=== PATIENT | male | born 1995 | race Caucasian/White ===

== ENCOUNTER 2017-04-13 07:35 | Day surgery (SDC) | payer OTHER ==
[2017-04-09 09:34] LABS: ABSOLUTE EOSINOPHILS # (AUTO) 0.2 10^3/uL (0.0-0.6); ABSOLUTE LYMPHOCYTES (AUTO) 1.8 10^3/uL (0.5-4.7); ABSOLUTE MONOCYTES (AUTO) 0.5 10^3/uL (0.1-1.4); BASOPHILS % (AUTO) 0.9 % (0-2); EOSINOPHILS % (AUTO) 3.8 % (0-6); HEMATOCRIT 42.8 % (37.9-51.0); HEMOGLOBIN 14.4 g/dL (13.5-17.0); HGB HCT DIFFERENCE 0.4; LYMPHOCYTES % (AUTO) 32.8 % (13-45); MEAN CORPUSCULAR HEMOGLOBIN 31.5 pg (27.0-33.4); MEAN CORPUSCULAR HGB CONC 33.7 g/dL (32.0-36.0); MEAN CORPUSCULAR VOLUME 94 fl (80-97); MONOCYTES % (AUTO) 8.4 % (3-13); RED BLOOD COUNT 4.58 10^6/uL (4.35-5.55); RED CELL DISTRIBUTION WIDTH 13.7 % (11.5-14.0); SEGMENTED NEUTROPHILS % (AUTO) 54.1 % (42-78); WHITE BLOOD COUNT 5.6 10^3/uL (4.0-10.5)
[2017-04-09 09:44] LABS: APPEARANCE,URINE CLEAR; BILIRUBIN,URINE NEGATIVE (NEGATIVE); GLUCOSE, URINE NEGATIVE (NEGATIVE); KETONES,URINE NEGATIVE (NEGATIVE); LEUKOCYTE ESTERASE,URINE NEGATIVE (NEGATIVE); NITRITE,URINE NEGATIVE (NEGATIVE); PROTEIN,URINE NEGATIVE (NEGATIVE); URINE SPECIFIC GRAVITY 1.026; UROBILINOGEN,URINE NEGATIVE mg/dL (<2.0)
[2017-04-09 10:08] LABS: ANION GAP 9 (5-19); BLOOD UREA NITROGEN 15 mg/dL (7-20); CALCIUM 9.4 mg/dL (8.4-10.2); CARBON DIOXIDE 28 mmol/L (22-30); CHLORIDE 105 mmol/L (98-107); CREATININE RESULT 1.06 mg/dL (0.52-1.25); GLUCOSE 88 mg/dL (75-110); POTASSIUM 4.4 mmol/L (3.6-5.0); SODIUM 141.7 mmol/L (137-145)
[~2017-04-13 07:35] MED LIST: CEFAZOLIN 2 GM/D5W RTU 2 GM/50 ML RTUPB IV PRN; LACTATED RINGERS 1000 ML IV PRN; LIDOCAINE 0.5% INJ-PF (5 MG/ML) 50 ML SDV SUBCUT PRN
[2017-04-13] MEDS ORDERED: BUPIVACAINE HCL 0.5 % INJ/PF 30 ML SDV ONE (07:54)
[2017-04-13] MEDS ORDERED: EPHEDRINE SULFATE INJ 50 MG/1 ML AMPULE ONE (09:43)
[2017-04-13] MEDS ORDERED: FENTANYL CITRATE INJ/PF 250 MCG/5 ML AMPULE ONE (09:43)
[2017-04-13] MEDS ORDERED: PROPOFOL INJ 200 MG/20 ML VIAL IV ONE (09:43)
[2017-04-13] MEDS ORDERED: MIDAZOLAM 2 MG/2 ML INJ ONE (09:43)
[2017-04-13] MEDS ORDERED: ACETAMINOPHEN 100 ML IV ONE (09:44)
[2017-04-13] MEDS ORDERED: PROMETHAZINE HCL INJ 25 MG/1 ML VIAL IV PRN ×2 (11:14)
[2017-04-13] MEDS ORDERED: DIPHENHYDRAMINE HCL 50 MG/ML VIAL IV PRN (11:14)
[2017-04-13] MEDS ORDERED: FENTANYL CITRATE INJ/PF 100 MCG/2 ML AMPUL IV PRN ×3 (11:14)
[2017-04-13] MEDS ORDERED: MEPERIDINE HCL/PF INJ 25 MG/1 ML DISP.SYRIN IV PRN (11:14)
[2017-04-13] MEDS ORDERED: ONDANSETRON HCL INJ/PF 4 MG/2 ML SDV IV PRN ×2 (11:14→13:02)
[2017-04-13] MEDS ORDERED: MORPHINE SULFATE 10 MG/ML INJ IV PRN (11:14)
--- NOTE | 2017-04-13 13:01 | Operative Report ---
Operative Report DATE OF SURGERY: 04/13/17 PREOPERATIVE DIAGNOSIS: Right SNAC Wrist Stage II/III POSTOPERATIVE DIAGNOSIS: Right SNAC Wrist Stage II OPERATION: 1. Right wrist capitolunate arthrodesis with scaphoid/triquetral excision. 2. posterior interosseous neurectomy. 3. 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 Discussed treatment options with the patient including salvage procedure which would include arthroscopy with neurectomies however given the degenerative changes I do not feel this will likely provide long-term relief thus the joint decision was made to proceed with scaphoid excision midcarpal arthrodesis. Procedure In Detail: Patient was seen and evaluated in the preoperative holding area. The RIGHT upper extremity was initialized and marked. Patient received 2g of Ancef IV for bacterial prophylaxis. Patient was taken back to the operative room where transferred to the operative table and placed under general anesthesia. Once they were adequately anesthetized a nonsterile tourniquet was placed on the upper extremity. A surgical team debriefing was performed ensuring all instrumentation was available, the surgical procedure was discussed with possible concerns reviewed. The upper extremity was prepped with chlorhexidine and alcohol and draped in a sterile fashion. A timeout was done identifying correct patient, procedure and extremity everyone in attendance agree with this and verbalized no concerns. The extremity was exsanguinated the tourniquet was inflated to 250 mmHg. General skin incision was made just ulnar to Frandy's tubercle. Blunt dissection was performed branches of superficial radial nerve were identified and retracted. I then opened the third dorsal compartment and the EPL tendon was translocated in a radial direction. The fourth dorsal compartment was then elevated identifying the dorsal radial carpal and dorsal intercarpal ligaments. Within the fourth dorsal compartment the posterior interosseous nerve was identified and 1 cm was excised. A capsulotomy was made leaving sufficient tissue for later repair. I identified the nonunion site there was sclerosis of the edges along with degenerative changes at the radial styloid and radial scaphoid articulation. Early degenerative changes of the scaphocapitate. I then proceeded with excision of the scaphoid. The scaphoid was removed in its entirety cartilage was resected on the back table allowing for autograft for midcarpal fusion. I then proceeded with excision of the triquetrum to allow optimal possible postoperative range of motion. I then proceeded with radial styloidectomy removing less than 4 mm of the radial styloid distal to the insertion of the radius scaphoid capitate ligament which I was able to visualize directly. C-arm fluoroscopy was obtained confirming complete excision of the scaphoid and triquetrum. Identified the capitolunate and radiolunate articulations there was good cartilage along the radial lunate articulation without evidence of degenerative changes. I then prepared the bone at the capitolunate interval down to good cancellus bone to allow for optimal bone healing for arthrodesis. With a 0.0262 K wire I reduce the capitolunate joint to neutral position correcting patient dorsally rotated lunate. This position was then secured with a 0.062 K wire. I then proceeded with fixation of my fusion with BME norma. Under C- arm fluoroscopy I confirmed positions along the capitate and lunate these were then drilled a 15 x 10 and a 13 x 10 norma were utilized to obtain fixation unfortunately this resulted in comminution along the dorsal aspect of the lunate and adequate fixation for fusion. At that point I turned to an alternative method of fixation with Acutrak screws. Maintaining the position of my capitolunate I placed the K wire for a mini Acutrak screw C-arm fluoroscopy was obtained measuring the appropriate size screw. A 26 mm mini Acutrak screw was placed into position obtaining optimal capitolunate compression of the cancellus bone surfaces. Given the small lunate I then placed a second Acutrak screw but used a mini Acutrak screw. Once again the K wire was placed and confirmed position with C arm fluoroscopy and I placed a 20 mm mini Acutrak screw obtaining good fixation. Range of motion was then measured the patient demonstrated near full passive flexion with extension greater than 55. There is no evidence of bony impingement dorsally. The wound was then copiously irrigated with normal saline. I then packed the remaining scaphoid and triquetral cancellus bone with any remaining defects between the capitate and lunate. Final C arm fluoroscopy radiographs were obtained demonstrating acceptable alignment on lateral view of my capitolunate fusion site no evidence of ulnar translocation. The dorsal capsule was loosely closed with interrupted 3-0 Ethibond suture. I then secured the remaining fourth dorsal compartment with the third dorsal compartment retinaculum with interrupted 3-0 Vicryl suture. The EPL remained transposed. The tourniquet was then deflated. Any peripheral vasculature was coagulated with bipolar cautery. Subcutaneous tissues closed with interrupted 3 -0 Monocryl suture. Skin was closed with running subcuticular 3-0 Monocryl reinforced with Dermabond and Steri-Strips. 20 cc of 0.5% Marcaine without epinephrine was injected for postoperative pain control. Placed in a dorsal plaster splint. Sponge counts, instrument counts, needle counts counts were correct. Patient was then awoken from anesthesia. Transferred from the operating room table to the operating room stretcher. There was no intraoperative complications patient tolerated procedure well stable to PACU. Postoperative plan: Patient will follow in the office in 10-14 days. We will obtain x-rays on follow-up visit. He will be placed in a short arm cast at that time.
[2017-04-13] MEDS ORDERED: HYDROMORPHONE HCL INJ/PF 2 MG/ML AMPULE IV PRN (13:02)
[2017-04-13] MEDS ORDERED: OXYCODONE-ACETAMINOPHEN 5-325 MG TABLET PO PRN (13:02)
[2017-04-13 14:33] VITALS: BP 123/80
[2017-04-13] MEDS ORDERED: LIDOCAINE 2% INJ-PF (20 MG/ML) 10 ML AMPUL ONE (14:40)
[2017-04-13] MEDS ORDERED: GLYCOPYRROLATE INJ 0.4 MG/2 ML VIAL ONE (14:40)
[2017-04-13] MEDS ORDERED: SUCCINYLCHOLINE CHLORIDE INJ 200 MG/10 ML VIAL ONE (14:40)
[2017-04-13] MEDS ORDERED: METOCLOPRAMIDE HCL INJ/PF 10 MG/2 ML SDV ONE (14:40)
[2017-04-13] MEDS ORDERED: ONDANSETRON HCL INJ/PF 4 MG/2 ML SDV ONE (14:40)
[2017-04-13] MEDS ORDERED: DEXAMETHASONE SOD PHOSPHATE INJ 4 MG/1 ML VIAL ONE (14:40)
[2017-04-13] MEDS ORDERED: KETOROLAC TROMETHAMINE 60 MG/2 ML SDV ONE (14:40)
--- NOTE | 2017-04-13 15:27 | RADIOLOGY REPORT (SQ) ---
EXAM DESCRIPTION: WRIST RIGHT 2 VIEWS; NO CHG FLUORO COMPLETED DATE/TIME: 04/13/2017 3:17 pm REASON FOR STUDY: ORIF RT SCAPHOID S62.001K UNSP FX NAVICULAR BONE OF R WRIST, SUBS FOR FX W NO COMPARISON: None. FLUOROSCOPY TIME: 1 minutes 45 seconds 10 digital images saved to PACS. TECHNIQUE: Intra-operative images acquired during surgical procedure to evaluate progress. NUMBER OF IMAGES: Cine fluoroscopic images. LIMITATIONS: None. FINDINGS: Intra procedural imaging and fluoro during surgery of the right carpal bones. Please see the operative report for further detail IMPRESSION: Intra procedural imaging and fluoro COMMENT: Quality ID [id number]: Final reports for procedures using fluoroscopy that document radiation exp osure indices, or exposure time and number of fluorographic images (if radiation exposure indices are not available) Please consult full operative report of the attending physician for description of the procedure. TECHNICAL DOCUMENTATION: JOB ID: [id number] [employer]- All Rights Reserved
--- NOTE | 2017-04-14 12:16 | PDOC DISCHARGE SUMMARY ---
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 Fransisco Esquivel @ [facility] for Surgery to be seen in 10-14 days or as scheduled [place]: [place]: [place]: Keep splint clean/dry/intact. Ice and elevate May begin finger range of motion attempting to make full fist. Stool softener of choice when on pain medication. Prescriptions: Ibuprofen 800 mg PO Q8 PRN #40 tablet PRN Reason: Oxycodone HCl/Acetaminophen [Percocet 5-325 mg Tablet] 1 - 2 tab PO ASDIR PRN # 45 tablet PRN Reason: Discharge Diet: As Tolerated Respiratory Treatments at Home: Deep Breathing/Coughing Discharge Activity: No Lifting Over 10 Pounds, No Lifting/Push/Pulling Report the Following to Your Physician Immediately: Fever over 101 Degrees, Unusual Bleeding, Redness, Swelling, Warmth, Increased Soreness
== END 2017-04-13 14:35 | disposition home or self-care (01) ==
LOC: OROUT 07:35
PROVIDERS: ATTEND Orthopaedic Surgery
PROC: 0PBH0ZZ Excision of Right Radius, Open Approach (ICD-10-PCS; 2017-04-13)
PROC: 0RGN04Z Fusion of Right Wrist Joint with Internal Fixation Device, Open Approach (ICD-10-PCS; 2017-04-13)
PROC: 01B60ZZ Excision of Radial Nerve, Open Approach (ICD-10-PCS; principal; 2017-04-13 09:45)
DX: S62.001K Unspecified fracture of navicular [scaphoid] bone of right wrist, subsequent encounter for fracture with nonunion (principal); X58.XXXD Exposure to other specified factors, subsequent encounter; M87.9 Osteonecrosis, unspecified; M25.531 Pain in right wrist
CPT/HCPCS: 36415; 85025; 80048; 81001; 73100; 64772; 25230; 25830; C1769 ×3; J2250; J1100; J1885; J3010; J2765; J0330; J2405; J2704; J3490; J0690; J0131; 01830

== ENCOUNTER 2017-05-18 16:11 | Day surgery (SDC) | payer OTHER ==
[2017-05-17 12:14] LABS: ABSOLUTE BASOPHILS # (AUTO) 0.1 10^3/uL (0.0-0.2); ABSOLUTE EOSINOPHILS # (AUTO) 0.2 10^3/uL (0.0-0.6); ABSOLUTE LYMPHOCYTES (AUTO) 2.1 10^3/uL (0.5-4.7); ABSOLUTE MONOCYTES (AUTO) 0.6 10^3/uL (0.1-1.4); ABSOLUTE NEUT (AUTO) 4.2 10^3/uL (1.7-8.2); BASOPHILS % (AUTO) 0.9 % (0-2); EOSINOPHILS % (AUTO) 2.4 % (0-6); HEMATOCRIT 42.5 % (37.9-51.0); HEMOGLOBIN 14.8 g/dL (13.5-17.0); HGB HCT DIFFERENCE 1.9; LYMPHOCYTES % (AUTO) 29.7 % (13-45); MEAN CORPUSCULAR HEMOGLOBIN 32.1 pg (27.0-33.4); MEAN CORPUSCULAR HGB CONC 34.9 g/dL (32.0-36.0); MEAN CORPUSCULAR VOLUME 92 fl (80-97); MONOCYTES % (AUTO) 8.2 % (3-13); RED BLOOD COUNT 4.61 10^6/uL (4.35-5.55); RED CELL DISTRIBUTION WIDTH 13.4 % (11.5-14.0); SEGMENTED NEUTROPHILS % (AUTO) 58.8 % (42-78); WHITE BLOOD COUNT 7.2 10^3/uL (4.0-10.5)
[2017-05-17 12:29] LABS: APPEARANCE,URINE CLEAR; BILIRUBIN,URINE NEGATIVE (NEGATIVE); GLUCOSE, URINE NEGATIVE (NEGATIVE); KETONES,URINE NEGATIVE (NEGATIVE); LEUKOCYTE ESTERASE,URINE NEGATIVE (NEGATIVE); NITRITE,URINE NEGATIVE (NEGATIVE); PROTEIN,URINE NEGATIVE (NEGATIVE); URINE SPECIFIC GRAVITY 1.017; UROBILINOGEN,URINE NEGATIVE mg/dL (<2.0)
[2017-05-17 12:37] LABS: ANION GAP 11 (5-19); BLOOD UREA NITROGEN 20 mg/dL (7-20); CALCIUM 9.9 mg/dL (8.4-10.2); CARBON DIOXIDE 29 mmol/L (22-30); CHLORIDE 102 mmol/L (98-107); CREATININE RESULT 0.93 mg/dL (0.52-1.25); GLUCOSE 80 mg/dL (75-110); POTASSIUM 4.7 mmol/L (3.6-5.0); SODIUM 141.9 mmol/L (137-145)
[~2017-05-18 16:11] MED LIST changes: +BUPIVACAINE HCL 0.5 % INJ/PF 30 ML SDV ONE; -CEFAZOLIN 2 GM/D5W RTU 2 GM/50 ML RTUPB IV PRN; +CEFAZOLIN SODIUM 2 GM in DEXTROSE 5%-WATER 100 ML IV PRN; +LIDOCAINE 1% INJ-PF (10 MG/ML) 30 ML SDV ONE
[2017-05-18] MEDS ORDERED: FENTANYL CITRATE INJ/PF 100 MCG/2 ML AMPUL ONE (16:18)
[2017-05-18] MEDS ORDERED: ONDANSETRON HCL INJ/PF 4 MG/2 ML SDV ONE (16:19)
[2017-05-18] MEDS ORDERED: MIDAZOLAM 2 MG/2 ML INJ ONE (16:19)
[2017-05-18] MEDS ORDERED: PROPOFOL INJ 200 MG/20 ML VIAL IV ONE (16:19)
[2017-05-18] MEDS ORDERED: DEXAMETHASONE SOD PHOSPHATE INJ 4 MG/1 ML VIAL ONE (16:19)
[2017-05-18] MEDS ORDERED: MEPERIDINE HCL/PF INJ 25 MG/1 ML DISP.SYRIN IV PRN (17:14)
[2017-05-18] MEDS ORDERED: MORPHINE SULFATE 10 MG/ML INJ IV PRN (17:14)
[2017-05-18] MEDS ORDERED: FENTANYL CITRATE INJ/PF 100 MCG/2 ML AMPUL IV PRN ×3 (17:14)
[2017-05-18] MEDS ORDERED: OXYCODONE-ACETAMINOPHEN 5-325 MG TABLET PO PRN ×3 (17:14→18:08)
[2017-05-18] MEDS ORDERED: DIPHENHYDRAMINE HCL 50 MG/ML VIAL IV PRN (17:14)
[2017-05-18] MEDS ORDERED: PROMETHAZINE HCL INJ 25 MG/1 ML VIAL IV PRN ×2 (17:14)
[2017-05-18] MEDS ORDERED: ONDANSETRON HCL INJ/PF 4 MG/2 ML SDV IV PRN (18:08)
[2017-05-18] MEDS ORDERED: HYDROMORPHONE HCL INJ/PF 2 MG/ML AMPULE IV PRN (18:08)
--- NOTE | 2017-05-18 18:10 | PDOC DISCHARGE SUMMARY ---
Discharge Summary (SDC) - Discharge Final Diagnosis: S/P Mid-Carpal Fusion Date of Surgery: 05/18/17 Discharge Date: 05/18/17 Condition: Good Treatment or Instructions: Schedule Follow Up w/ Dr. Fransisco Esquivel @ [facility] for Surgery to be seen in 10-14 days or as scheduled [place]: [place]: [place]: Keep cast clean/dry/intact. Ice and elevate May begin finger range of motion attempting to make full fist. Stool softener of choice when on pain medication. Prescriptions: Oxycodone HCl/Acetaminophen [Percocet 5-325 mg Tablet] 1 - 2 tab PO ASDIR PRN # 45 tablet PRN Reason: Discharge Diet: As Tolerated Respiratory Treatments at Home: Deep Breathing/Coughing Discharge Activity: No Lifting Over 10 Pounds, No Lifting/Push/Pulling Report the Following to Your Physician Immediately: Fever over 101 Degrees, Unusual Bleeding, Redness, Swelling, Warmth, Increased Soreness
--- NOTE | 2017-05-18 18:26 | Operative Report ---
Operative Report DATE OF SURGERY: 05/18/17 PREOPERATIVE DIAGNOSIS: Painful Hardware S/P MidCarpal Fusion POSTOPERATIVE DIAGNOSIS: Same OPERATION: Removal Hardware Right Wrist. Percutaneous Pinning Radiocarpal Joint SURGEON: RICARDO FLORES ANESTHESIA: GA COMPLICATIONS: None ESTIMATED BLOOD LOSS: Minimal PROCEDURE: Indication for Above Procedure: 21-year-old male who sustained a scaphoid nonunion subsequently we proceeded with midcarpal fusion. Approximately 3 weeks postoperatively patient was swimming when he dove into the pool subsequent and got his cast wet. A follow- up visit x-rays were obtained demonstrating hardware migration. At that point we discussed treatment options and recommended proceeding with operative intervention which includes removal of extruded hardware. Risks and benefits were explained the patient patient verbalized understanding consented for the procedure. Procedure in detail: Procedure In Detail: Patient was seen and evaluated in the preoperative holding area. The RIGHT upper extremity was initialized and marked. Patient received 2g of Ancef IV for bacterial prophylaxis. Patient was taken back to the operative room where transferred to the operative table and placed under general anesthesia. Once they were adequately anesthetized a nonsterile tourniquet was placed on the upper extremity. A surgical team debriefing was performed ensuring all instrumentation was available, the surgical procedure was discussed with possible concerns reviewed. The upper extremity was prepped with chlorhexidine and alcohol and draped in a sterile fashion. A timeout was done identifying correct patient, procedure and extremity everyone in attendance agree with this and verbalized no concerns. The extremity was exsanguinated the tourniquet was inflated to 250 mmHg. Previous skin incision was utilized. Blunt dissection was performed the superficial radial nerve was identified and retracted with the skin flap. The interval between the third and fourth dorsal compartments was utilized fourth dorsal compartment was elevated. A transverse capsulotomy was made identifying the radiocarpal joint. Migration of the most ulnar screw was identified. There was an area of chondral damage with a screw extruded. Screw was successfully removed. There was collapse of the lunate into the capitate causing risk of extrusion of the most radial screw. He did demonstrate good osseous union along the most volar aspect of the lunate thus the mini Acutrak screw radially was also removed. There was fragmentation of the lunate with a dorsal fragment approximately 10 mm x 10 mm this was excised to avoid loose body within the joint. Once this was removed there was smooth articulation of the radiolunate joint. No evidence of crepitation. There is no degenerative changes of the radius appreciated. Early further provide fixation I then utilized a 0.045 K wire transarticular along the radiocarpal joint to provide some immobilization. Wound was then copiously irrigated with normal saline. Tourniquet was deflated. A peripheral vasculature was coagulated bipolar cautery into the wound was dry. A transverse capsulotomy was closed with interrupted 3-0 Vicryl suture. Subcutaneous tissues were closed with interrupted 4-0 Monocryl. Skin was closed with running subcuticular 4-0 Monocryl reinforced with Dermabond and Steri-Strips. 10 cc of 0.5% Marcaine without epinephrine was injected for postoperative pain control. Patient was placed in a well-padded loosely fitting short arm cast for immobilization. Sponge count Sponge counts, instrument counts, needle counts counts were correct. Patient was then awoken from anesthesia. Transferred from the operating room table to the operating room stretcher. There was no intraoperative complications patient tolerated procedure well stable to PACU. Postoperative plan: Plan will be continue the K wire for 6 weeks at that point we will proceed with K wire removal. Patient will require casting up to 10 weeks or until union.
[2017-05-18] MEDS ORDERED: HYDROMORPHONE HCL INJ/PF 2 MG/ML AMPULE ONE (19:18)
[2017-05-18 20:20] VITALS: BP 137/84
--- NOTE | 2017-05-18 20:38 | RADIOLOGY REPORT (SQ) ---
EXAM DESCRIPTION: NO CHG FLUORO COMPLETE DATE/TIME: 05/18/2017 8:30 pm REASON FOR STUDY: HARDWARE REMOVAL RT WRIST T84.398A [facility] COMPL OF OTH BONE DEVICES, IMPLANTS AND G RAFTS FINDINGS: Please see combined report for performance of procedure and radiologic supervision and int erpretation. IMPRESSION: Please see combined report for performance of procedure and radiologic supervision and i nterpretation.
--- NOTE | 2017-05-18 20:39 | RADIOLOGY REPORT (SQ) ---
EXAM DESCRIPTION: WRIST RIGHT 2 VIEWS COMPLETED DATE/TIME: 05/18/2017 8:30 pm REASON FOR STUDY: HARDWARE REMOVAL RT WRIST T84.398A [facility] COMPL OF OTH BONE DEVICES, IMPLANTS AND G RAFTS COMPARISON: None. FLUOROSCOPY TIME: 50 seconds 8 images saved to PACS. TECHNIQUE: Intra-operative images acquired during surgical procedure to evaluate progress. NUMBER OF IMAGES: 8 image LIMITATIONS: None. FINDINGS: Fluoroscopic images were obtained during placement of orthopedic hardware at the level of the carpal bones. IMPRESSION: IMAGE(S) OBTAINED DURING PROCEDURE. COMMENT: Quality ID [id number]: Final reports for procedures using fluoroscopy that document radiation exp osure indices, or exposure time and number of fluorographic images (if radiation exposure indices are not available) Please consult full operative report of the attending physician for description of the procedure. TECHNICAL DOCUMENTATION: JOB ID: [id number] [employer]- All Rights Reserved
== END 2017-05-18 20:20 | disposition home or self-care (01) ==
LOC: OROUT 16:11
PROVIDERS: ATTEND Orthopaedic Surgery
PROC: 0RG Upper Joints, Fusion (ICD-10-PCS; 2017-05-18)
PROC: 0RPN04Z Removal of Internal Fixation Device from Right Wrist Joint, Open Approach (ICD-10-PCS; principal; 2017-05-18 17:00)
DX: T84.398A Other mechanical complication of other bone devices, implants and grafts, initial encounter (principal); S62.001K Unspecified fracture of navicular [scaphoid] bone of right wrist, subsequent encounter for fracture with nonunion; X58.XXXD Exposure to other specified factors, subsequent encounter; M79.641 Pain in right hand
CPT/HCPCS: 36415; 85025; 80048; 81001; 73100; 20680; 25820; C1769; J2250; J0690; J1100; J3010; J1170; J2405; J2704; 01830; J3490

== ENCOUNTER 2018-04-05 16:42 | Emergency (ER) | payer OTHER ==
[2018-04-05 16:49] VITALS: BP 131/63
--- NOTE | 2018-04-05 17:29 | ER Document Report ---
HPI - HPI Patient complains to provider of: cough, congestion Onset: Other - 2 days Pain Level: 3 Context: 22 yo male with cough, congestion for several days. Chest sore from coughing. No sob. No hx ashtma, some fever. Associated Symptoms: None Exacerbated by: Other - see above Relieved by: Denies Similar symptoms previously: Yes Recently seen / treated by doctor: No - ROS ROS below otherwise negative: Yes Systems Reviewed and Negative: Yes All other systems reviewed and negative - CONSTITUTIONAL Constitutional: REPORTS: Fever, Chills - EENT EENT: DENIES: Sore Throat, Ear Pain, Eye problems - NEURO Neurology: DENIES: Headache, Weakness, Vision blurred, Dizzinesss / Vertigo - CARDIOVASCULAR Cardiovascular: REPORTS: Chest pain - RESPIRATORY Respiratory: REPORTS: Trouble Breathing, Coughing - GASTROINTESTINAL Gastrointestinal: DENIES: Abdominal Pain, Black / Bloody Stools - URINARY Urinary: DENIES: Dysuria, Urgency, Frequency - MUSCULOSKELETAL Musculoskeletal: DENIES: Extremity pain Past Medical History - General Information source: Patient - Social History Smoking Status: Never Smoker Chew tobacco use (# tins/day): No Frequency of alcohol use: None Drug Abuse: None Lives with: Spouse/Significant other Family History: Reviewed & Not Pertinent Patient has suicidal ideation: No Patient has homicidal ideation: No Renal/ Medical History: Denies: Hx Peritoneal Dialysis Musculoskeltal Medical History: Reports Hx Arthritis - R WRIST Surgical Hx: Negative - Immunizations Hx Diphtheria, Pertussis, Tetanus Vaccination: Yes Vertical Provider Document - CONSTITUTIONAL Agree With Documented VS: Yes Exam Limitations: No Limitations General Appearance: No Apparent Distress - INFECTION CONTROL TRAVEL OUTSIDE OF THE [place] IN LAST 30 DAYS: No - HEENT HEENT: Normal ENT Exam - NECK Neck: Supple - RESPIRATORY Respiratory: Breath Sounds Normal, No Respiratory Distress - CARDIOVASCULAR Cardiovascular: Regular Rate, Regular Rhythm - MUSCULOSKELETAL/EXTREMETIES Musculoskeletal/Extremeties: MAEW - NEURO Level of Consciousness: Awake - DERM Integumentary: No Rash Course - Vital Signs Vital signs: Temp Pulse Resp BP Pulse Ox 98.6 F 78 16 131/63 H 96 04/05/18 16:48 04/05/18 16:48 04/05/18 16:48 04/05/18 16:48 04/05/18 16:48 Discharge - Discharge Clinical Impression: Upper respiratory infection Condition: Good Disposition: HOME, SELF-CARE Instructions: Acetaminophen, Ibuprofen (General) ([facility]), Upper Respiratory Illness ([facility]) Additional Instructions: Rest Tylenol Motrin See your sick call tomorrow for recheck Return to the emergency room if he gets shortness of breath, trouble breathing Forms: Return to Work Referrals: RADHA MCCOY MD [Primary Care Provider] - Follow up as needed
== END 2018-04-05 17:40 | disposition home or self-care (01) ==
LOC: ER 16:42
DX: J06.9 Acute upper respiratory infection, unspecified (principal); R50.9 Fever, unspecified
CPT/HCPCS: 99283

== ENCOUNTER 2018-05-17 08:00 | Day surgery (SDC) | payer OTHER ==
[~2018-05-17 08:00] MED LIST changes: +CEFAZOLIN 2 GM/D5W RTU 2 GM/50 ML RTUPB IV PRN; -CEFAZOLIN SODIUM 2 GM in DEXTROSE 5%-WATER 100 ML IV PRN; +FENTANYL CITRATE INJ/PF 100 MCG/2 ML AMPUL ONE; -LIDOCAINE 1% INJ-PF (10 MG/ML) 30 ML SDV ONE; +MIDAZOLAM 2 MG/2 ML INJ ONE; +PROPOFOL INJ 200 MG/20 ML VIAL IV ONE
[2018-05-17] MEDS ORDERED: KETOROLAC TROMETHAMINE 60 MG/2 ML SDV ONE (08:50)
[2018-05-17] MEDS ORDERED: OXYCODONE-ACETAMINOPHEN 5-325 MG TABLET PO PRN ×3 (11:18→13:15)
[2018-05-17] MEDS ORDERED: MEPERIDINE HCL/PF INJ 25 MG/1 ML DISP.SYRIN IV PRN (11:18)
[2018-05-17] MEDS ORDERED: FENTANYL CITRATE INJ/PF 100 MCG/2 ML AMPUL IV PRN ×3 (11:18)
[2018-05-17] MEDS ORDERED: PROMETHAZINE HCL INJ 25 MG/1 ML VIAL IV PRN ×2 (11:18)
[2018-05-17] MEDS ORDERED: MORPHINE SULFATE 10 MG/ML INJ IV PRN (11:18)
[2018-05-17] MEDS ORDERED: DIPHENHYDRAMINE HCL 50 MG/ML VIAL IV PRN (11:18)
[2018-05-17] MEDS ORDERED: DEXAMETHASONE SOD PHOSPHATE INJ 4 MG/1 ML VIAL ONE (11:23)
[2018-05-17] MEDS ORDERED: ONDANSETRON HCL INJ/PF 4 MG/2 ML SDV ONE (11:23)
[2018-05-17] MEDS ORDERED: ONDANSETRON HCL INJ/PF 4 MG/2 ML SDV IV PRN (13:15)
[2018-05-17] MEDS ORDERED: HYDROMORPHONE HCL INJ/PF 2 MG/ML AMPULE IV PRN (13:15)
--- NOTE | 2018-05-17 13:16 | Discharge Summary ---
Discharge Summary (SDC) - Discharge Final Diagnosis: Nonunion midcarpal arthrodesis Date of Surgery: 05/17/18 Discharge Date: 05/17/18 Condition: Good Treatment or Instructions: Schedule Follow Up w/ Dr. Fransisco Esquivel @ [facility] for Surgery to be seen in 10-14 days or as scheduled [place]: [place]: [place]: May remove dressing on postop day #3, keep incision covered and dry. Ice and elevate May begin finger range of motion attempting to make full fist. Stool softener of choice when on pain medication. Prescriptions: Ketorolac Tromethamine [Toradol 10 mg Tablet] 10 mg PO Q8HP PRN #10 tablet PRN Reason: Oxycodone HCl/Acetaminophen [Percocet 5-325 mg Tablet] 1 - 2 tab PO ASDIR PRN # 30 tablet PRN Reason: Referrals: RADHA MCCOY MD [Primary Care Provider] - Discharge Diet: As Tolerated Respiratory Treatments at Home: Deep Breathing/Coughing Discharge Activity: No Lifting Over 10 Pounds, No Lifting/Push/Pulling Report the Following to Your Physician Immediately: Fever over 101 Degrees, Unusual Bleeding, Redness, Swelling, Warmth, Increased Soreness
--- NOTE | 2018-05-17 13:25 | Operative Report ---
Operative Report PREOPERATIVE DIAGNOSIS: Midcarpal arthrodesis nonunion right wrist POSTOPERATIVE DIAGNOSIS: Same OPERATION: Right wrist proximal row carpectomy with interpositional dermal allograft SURGEON: RICARDO FLORES ANESTHESIA: GA COMPLICATIONS: None ESTIMATED BLOOD LOSS: Minimal PROCEDURE: Indication for above procedure: 22-year-old male who underwent midcarpal arthrodesis unfortunately and is postoperative. He sustained an injury resulting in hardware loosening which required repeat operative intervention attempts at revision midcarpal arthrodesis are made unfortunately patient developed nonunion with arthrosis of the radiocarpal joint. We attempted conservative management after discussing treatment options and failing conservative management decision was made to proceed with operative intervention. Patient understands risks and benefits of the procedure and prognosis of his injury. After discussing these risks and benefits joint decision was made to proceed with operative intervention. Procedure In Detail: Patient was seen and evaluated in the preoperative holding area. The RIGHT upper extremity was initialized and marked. Patient received 2g of Ancef IV for bacterial prophylaxis. Patient was taken back to the operative room where transferred to the operative table and placed under general anesthesia. Once they were adequately anesthetized a nonsterile tourniquet was placed on the upper extremity. A surgical team debriefing was performed ensuring all instrumentation was available, the surgical procedure was discussed with possible concerns reviewed. The upper extremity was prepped with chlorhexidine and alcohol and draped in a sterile fashion. A timeout was done identifying correct patient, procedure and extremity everyone in attendance agree with this and verbalized no concerns. The extremity was exsanguinated the tourniquet was inflated to 250 mmHg. Previous skin incision was utilized. Blunt dissection was performed. Branches of the superficial radial nerve were identified and scarred into the underlying retinaculum of the second dorsal compartment. The superficial radial nerve was neurolysed. Any small peripheral veins were coagulated with bipolar cautery. The third dorsal compartment was released and the EPL tendon retracted the interval between the third and fourth dorsal compartment was then utilized and the fourth dorsal compartment elevated Exposing the dorsal capsule. A Lala type capsulotomy ulnarly based was performed to expose the underlying carpus. There was significant scarring of the underlying carpus with evidence of nonunion between the capitate and lunate. I carefully debrided the scar tissue preserving the underlying remaining hyalin cartilage of the distal radius. Any of the remaining lunate was excised. Once the scar tissue was debrided and the remaining lunate was removed full passive wrist flexion and extension were obtained. Under C-arm fluoroscopy I confirmed adequate lunate excision once I was satisfied with the amount of lunate that was removed I proceeded with placement of the interpositional graft. The joint space was measured was found to be 35 mm radial to ulnarly, 25 mm anterior and posterior. Thus the dermal allograft was placed on the back table. The graft was folded cut to obtain dimensions of 35 x 25 mm x 7 mm. The dorsal free edge was then reapproximated using a running #2 FiberWire. This was then placed in saline. Utilizing a #2 FiberWire x2 [id number] sutures were placed into the volar capsule. Under C-arm fluoroscopy the guidepin was placed for a 3.5 mm forked tip swivel lock which was placed along the nonarticular radial portion of the capitate. A second forked tip swivel lock was placed along the radial aspect of the hamate. Good fixation was obtained and confirmed. The graft was then placed into the radiocarpal joint first the volar capsule sutures were secured along the central aspect of the graft with a simple suture. Horizontal mattress was placed from the anchor sutures. The volar capsular sutures was first secured and cut. The anchor sutures were then secured and cut. With wrist range of motion there is no evidence of graft extrusion. C-arm fluoroscopy was obtained which demonstrated improved carpal height with interposition. A portion of the capsule was then secured to the graft with 2-0 Monocryl suture. A 0.54 K wire was placed from the distal radius into the capitate to provide provisional fixation for the next 2 weeks. The tourniquet was deflated. Any peripheral bleeding was controlled with bipolar cautery. The wound was copiously irrigated with normal saline. The capsule was closed with 2-0 Monocryl suture. The retinaculum of the fourth dorsal compartment was reapproximated with 2-0 Monocryl suture. Subcutaneous tissues were closed with interrupted 4-0 Monocryl suture. Skin was closed with a running horizontal mattress 4-0 nylon suture. 30 cc of 0.5% Marcaine without epinephrine was injected for postoperative pain control. Patient was placed in a volar fiberglass splint maintaining wrist dorsiflexion of 20. Sponge counts, instrument counts, needle counts counts were correct. Patient was then awoken from anesthesia. Transferred from the operating room table to the operating room stretcher. There was no intraoperative complications patient tolerated procedure well stable to PACU. Postoperative plan: Patient will follow-up the office in 2 weeks at which point we will remove patient's K wire and transition him to a short arm cast. We will continue shorter cast for additional 4 weeks and then be set up for occupational therapy 6 weeks postoperatively and be fitted for a thermoplastic splint and begin range of motion. Will discontinue use of thermoplastic splint 10 weeks postoperatively.
[2018-05-17 15:27] VITALS: BP 122/79
--- NOTE | 2018-05-17 16:47 | RADIOLOGY REPORT (SQ) ---
EXAM DESCRIPTION: NO CHG FLUORO; WRIST RIGHT 2 VIEWS COMPLETED DATE/TIME: 05/17/2018 4:29 pm REASON FOR STUDY: RT WRIST ARTHROPLASTY ASST WITH FLUORO IN OR COMPARISON: 05/18/2017 FLUOROSCOPY TIME: 32 seconds 4 Images saved to PACS LIMITATIONS: None. PROCEDURE: Right wrist arthroplasty. FINDINGS: 4 images obtained with fluoro document placement a pin in the right wrist. The navicular and lunate appear to have been resected. IMPRESSION: Right wrist arthroplasty. Refer to operative note for further information. COMMENT: PQRS 6045F: Fluoroscopy time of the procedure is documented in the report. TECHNICAL DOCUMENTATION: JOB ID: [id number] [employer]- All Rights Reserved Reading location - IP/workstation name: [email or web address]
--- NOTE | 2018-05-17 16:47 | RADIOLOGY REPORT (SQ) ---
EXAM DESCRIPTION: NO CHG FLUORO; WRIST RIGHT 2 VIEWS COMPLETED DATE/TIME: 05/17/2018 4:29 pm REASON FOR STUDY: RT WRIST ARTHROPLASTY ASST WITH FLUORO IN OR COMPARISON: 05/18/2017 FLUOROSCOPY TIME: 32 seconds 4 Images saved to PACS LIMITATIONS: None. PROCEDURE: Right wrist arthroplasty. FINDINGS: 4 images obtained with fluoro document placement a pin in the right wrist. The navicular and lunate appear to have been resected. IMPRESSION: Right wrist arthroplasty. Refer to operative note for further information. COMMENT: PQRS 6045F: Fluoroscopy time of the procedure is documented in the report. TECHNICAL DOCUMENTATION: JOB ID: [id number] [employer]- All Rights Reserved Reading location - IP/workstation name: [email or web address]
== END 2018-05-17 15:00 | disposition home or self-care (01) ==
LOC: OROUT 08:00
PROVIDERS: ATTEND Orthopaedic Surgery
DX: S62.001K Unspecified fracture of navicular [scaphoid] bone of right wrist, subsequent encounter for fracture with nonunion (principal); X58.XXXD Exposure to other specified factors, subsequent encounter
CPT/HCPCS: 73100; 25447; C1713; Q4125; J2250; J3490; J1100; J1885; J3010; J2405; J2704; J0690; 01830